=== PATIENT | female | born 1985 | race Caucasian/White ===

== ENCOUNTER → 2024-01-28 07:01 | Outpatient (REF) | payer BC, SELFPAY | LOC: HWWDC 07:01 | PROVIDERS: ATTENDING PHYSICIAN Obstetrics & Gynecology; FAMILY PHYSICIAN Family Medicine | DX: Z12.31 Encounter for screening mammogram for malignant neoplasm of breast (principal) | CPT/HCPCS: 77063; 77067 ==

== ENCOUNTER → 2024-02-04 09:11 | Outpatient (REF) | payer BC, SELFPAY | LOC: WDC 09:11 | PROVIDERS: ATTENDING PHYSICIAN Obstetrics & Gynecology; FAMILY PHYSICIAN Family Medicine | DX: R92.8 Other abnormal and inconclusive findings on diagnostic imaging of breast (principal) | CPT/HCPCS: 76642 ==

== ENCOUNTER → 2024-08-12 08:50 | Outpatient (REF) | payer BC, SELFPAY | LOC: HWRAD 08:50 | PROVIDERS: ATTENDING PHYSICIAN Obstetrics & Gynecology; FAMILY PHYSICIAN Physician Assistant Medical | DX: N92.0 Excessive and frequent menstruation with regular cycle (principal) | CPT/HCPCS: 76830; 76856 ==

== ENCOUNTER 2024-10-23 05:44 | Day surgery (SDC) | payer BC, SELFPAY ==
[2024-10-22 09:29] LABS: Beta HCG Quantitative < 2.39 mIU/ml
[2024-10-22 09:43] LABS: % Basophils 0.2 % (0-2); % Eosinophils 0.9 % (0-6); % Immature Granulocytes 0.4 % (0-0.5); % Lymphocytes 25.6 % (20.5-51.1); % Monocytes 6.6 % (1.7-9.3); % Neutrophils 66.3 % (42.2-75.2); Absolute Eosinophils 0.1 10^3/uL (0-0.7); Absolute Lymphocytes 1.4 10^3/uL (1.2-3.4); Absolute Monocytes 0.4 10^3/uL (0.1-0.6); Absolute Neutrophils 3.5 10^3/uL (1.4-6.5); Hematocrit 40.5 % (37.0-47.0); Hemoglobin 13.5 g/dL (12.0-16.0); Mean Corp Hgb Conc. 33.3 g/dL (33.0-37.0); Mean Platelet Volume 10.7 fL (7.4-10.4); Nucleated Red Blood Cells % 0 %; Platelet Count 218 10^3/uL (130-400); Red Cell Dist. Width 12.8 % (11.5-14.5); White Blood Cell Count 5.3 10^3/uL (4.8-10.8)
[2024-10-22 11:04] LABS: Blood Urea Nitrogen 12 mg/dl (7-17); Carbon Dioxide 25 mmol/L (22-30); Chloride 101 mmol/L (98-107); Glucose 92 mg/dl (70-99); Potassium 3.9 mmol/L (3.5-5.1); Sodium 136 mmol/L (135-145); eGFR > 60.00
[2024-10-22 12:21] VITALS: BMI 37.9
[2024-10-23 06:35] VITALS: BMI 37.9
[2024-10-23 06:36] VITALS: BP 125/73
[2024-10-23] MEDS: TYLENOL 1000 MG PO (06:41)
[2024-10-23] MEDS: NEURONTIN 100 MG PO (06:41)
[2024-10-23] MEDS: NORMOSOL-R/PLASMALYTE-A 1000 IV (06:53)
--- NOTE | 2024-10-23 07:46 | W.IMMPOSTOP ---
Surgical Immed Post Op Note
-
Primary Surgeon: Kaley Laura DO
Assisting Surgeon: same
Pre-op Diagnosis: Menorrhagia, endometrial polyp
Post-op Diagnosis: same
Procedure Performed: Hysteroscopy D&C
Anesthesia Type: MAC with IV sedation
Specimen / Cultures: 1. endocervical curettings 2. endometrial curettings
Estimated Blood Loss: 5ml
Fluid deficit: 180ml NSS
Complications: none
Operative Findings: Uterus sounded to 7 cm, small dieudonne of endometrial tissue but no formed polyp. Bilateral tubal ostia seen.
Stable to recovery
Counts correct x2.
[2024-10-23 07:51] VITALS: BP 141/86
[2024-10-23 08:00] VITALS: BP 139/92
[2024-10-23 08:30] VITALS: BP 133/87
== END 2024-10-23 08:45 | disposition home or self-care (01) ==
LOC: SDS 05:44
PROVIDERS: ATTENDING PHYSICIAN Obstetrics & Gynecology; FAMILY PHYSICIAN Physician Assistant Medical
DX: N92.0 Excessive and frequent menstruation with regular cycle (principal); N84.0 Polyp of corpus uteri
CPT/HCPCS: 58558; 88305; 80048; 84702; 85025

== ENCOUNTER → 2025-02-08 07:00 | Outpatient (REF) | payer BC, SELFPAY | LOC: HWWDC 07:00 | PROVIDERS: ATTENDING PHYSICIAN Obstetrics & Gynecology; FAMILY PHYSICIAN Physician Assistant Medical | DX: Z12.31 Encounter for screening mammogram for malignant neoplasm of breast (principal) | CPT/HCPCS: 77063; 77067 ==

== ENCOUNTER → 2025-03-05 16:20 | Outpatient (REF) | payer BC, SELFPAY | LOC: MRI 3T 16:20 | PROVIDERS: ATTENDING PHYSICIAN Nurse Practitioner Adult Health; FAMILY PHYSICIAN Physician Assistant Medical; OTHER PHYSICIAN Obstetrics & Gynecology; REFERRING PHYSICIAN Surgery | DX: R92.2 Inconclusive mammogram (principal); Z80.3 Family history of malignant neoplasm of breast; Z91.89 Other specified personal risk factors, not elsewhere classified; Z15.89 Genetic susceptibility to other disease | CPT/HCPCS: 77049; A9585 ==